=== PATIENT | female | born 1970 | race Caucasian/White ===

== ENCOUNTER 2017-12-07 11:35 | Outpatient (CLI) | payer OTHER ==
--- NOTE | 2017-12-07 13:10 | DI ---
EXAM: Three views of the left foot. History: Left foot pain. Findings: No acute fracture or dislocation. Small plantar spur measuring 6 mm. Joint spaces are pre served. No radiopaque foreign bodies. Impression: 1. No acute osseous abnormality. 2. Small plantar spur
== END 2017-12-07 11:36 | disposition home or self-care (01) ==
LOC: RAD 11:35
PROVIDERS: ATTEND Family Medicine
DX: M79.672 Pain in left foot (principal)

== ENCOUNTER 2018-01-18 11:49 | Outpatient (CLI) | payer OTHER | END 2018-01-18 11:50 | disposition home or self-care (01) | LOC: LAB 11:49 | PROVIDERS: ATTEND Family Medicine | DX: R03.0 Elevated blood-pressure reading, without diagnosis of hypertension (principal); F41.9 Anxiety disorder, unspecified; F32.9 Major depressive disorder, single episode, unspecified; R07.9 Chest pain, unspecified; R53.83 Other fatigue | CPT/HCPCS: 36415; 80053; 84439; 84443; 84484; 85025 ==

== ENCOUNTER 2018-07-31 13:55 | Outpatient (CLI) | payer OTHER ==
--- NOTE | 2018-08-01 10:07 | MAMMO ---
EXAM: Digital screening mammogram with tomosynthesis HISTORY: Screening COMPARISON: 07/02/2014 FINDINGS: Digital MLO and CC views of the right and left breast were performed. Tomosynthesis was p erformed. Computer aided detection utilized. There are scattered fibroglandular densities. Biopsy cl ip in the left breast. There is no evidence for mass, asymmetry, distortion, or suspicious calcificat ions in either breast. IMPRESSION: 1. No evidence of malignancy in the right or left breast. 2. Annual screening mammogram is recommended in one year. BIRADS category 1, negative examination
== END 2018-07-31 13:56 | disposition home or self-care (01) ==
LOC: RAD 13:55
PROVIDERS: ATTEND Family Medicine
DX: Z12.31 Encounter for screening mammogram for malignant neoplasm of breast (principal)
CPT/HCPCS: 77067